=== PATIENT | female | born 1935 | race African-American/Black ===

== ENCOUNTER 2021-06-29 14:13 | Inpatient (IN) | payer MEDICARE ==
[2021-06-29] MEDS ORDERED: Ondansetron ODT 4 MG TAB SL PRN (19:15)
[2021-06-29] MEDS ORDERED: Sodium Chloride 0.9% 1,000 ML IV SCH (19:15)
[2021-06-29] MEDS ORDERED: Ondansetron PF 4 MG/2 ML Vial IVP PRN (19:15)
[2021-06-29] MEDS ORDERED: Polyethylene Glycol 3350 17 GM Packet PO SCH (19:30)
[2021-06-29] MEDS ORDERED: cefTRIAXone\\ROCEPHIN 1 GM in Sodium Chloride 0.9% 100 ML IVPB SCH (20:00)
[2021-06-29] MEDS: Lactated Ringer's 1,000 ML IV SCH (20:10)
[2021-06-29] MEDS: Glycerin Adult Supp. (24 ct jar) PR SCH (21:10)
[2021-06-30] MEDS: Labetalol HCl 100 MG/20 ML VIAL SLOW IVP PRN ×5 (02:02→21:02)
[2021-06-30] MEDS: Glycerin Adult Supp. (24 ct jar) PR SCH ×3 (03:39→20:56)
[2021-06-30] MEDS: Lactated Ringer's 1,000 ML IV SCH ×3 (03:41→21:03)
[2021-06-30 07:52] LABS: #Eosinphils 0.1 thou/uL (0.0-0.7); #Lymphocytes 0.6 thou/uL (1.20-3.40); #Monocytes 0.7 thou/uL (0.11-0.59); #Neutrophils 6.5 thou/uL (1.40-6.50); %Basophils 0.2 % (0.0-1.0); %Eosinophils 0.7 % (0.0-10.0); %Lymphocytes 7.9 % (21.0-51.0); %Monocytes 8.4 % (0.0-10.0); %Neutrophils 82.7 % (42.0-75.0); Hemoglobin 11.5 g/dL (12.0-16.0); Mean Corpuscular HGB CONC 33.4 g/dL (32.0-36.0); Mean Corpuscular Hemoglobin 31.6 pg (27.0-31.0); Mean Corpuscular Volume 94.6 fL (78.0-98.0); Mean Platelet Volume 6.9 fL (7.4-10.4); Platelet Count 230 thou/uL (130-400); RBC Distribution Width 14.3 % (11.5-14.5); Red Blood Cell (RBC) Count 3.63 mill/uL (4.20-5.40); White Blood Cell (WBC) Count 7.9 thou/uL (4.8-10.8)
[2021-06-30] MEDS: Polyethylene Glycol 3350 17 GM Packet PO SCH (07:55)
[2021-06-30 08:12] LABS: Anion Gap 12 mmol/L (10-20); BUN (Urea Nitrogen) 24 mg/dL (9.8-20.1); Calc. Creatinine Clearance 41 mL/min (70-130); Calcium 8.8 mg/dL (7.8-10.44); Carbon Dioxide 23 mmol/L (23-31); Chloride 107 mmol/L (98-107); Glucose 141 mg/dL (83-110); Potassium 3.9 mmol/L (3.5-5.1); Sodium 138 mmol/L (136-145)
[2021-06-30] MEDS ORDERED: GoLYTELY 4,000 ml Bottle PO SCH (10:45)
[2021-06-30 13:35] LABS: SARS-CoV-2 PCR by NAA Not Detected (NotDetected)
[2021-06-30] MEDS ORDERED: cefTRIAXone\\ROCEPHIN 1 GM in Sodium Chloride 0.9% 100 ML IVPB SCH (14:00)
[2021-06-30] MEDS ORDERED: Simvastatin 40 MG TAB PO SCH (21:00)
[2021-06-30] MEDS: Atorvastatin Calcium 20 MG TAB PO SCH (21:05)
[2021-06-30] MEDS: Senokot S 8.6-50 MG TAB PO SCH (22:32)
[2021-07-01] MEDS ORDERED: Melatonin 3 MG TAB PO PRN (02:56)
[2021-07-01] MEDS: Glycerin Adult Supp. (24 ct jar) PR SCH ×3 (05:19→22:28)
[2021-07-01 06:59] LABS: #Eosinphils 0.1 thou/uL (0.0-0.7); #Lymphocytes 0.8 thou/uL (1.20-3.40); #Monocytes 0.7 thou/uL (0.11-0.59); #Neutrophils 4.7 thou/uL (1.40-6.50); %Basophils 0.2 % (0.0-1.0); %Eosinophils 1.9 % (0.0-10.0); %Lymphocytes 13.1 % (21.0-51.0); %Monocytes 10.3 % (0.0-10.0); %Neutrophils 74.5 % (42.0-75.0); Hemoglobin 11.1 g/dL (12.0-16.0); Mean Corpuscular HGB CONC 33.6 g/dL (32.0-36.0); Mean Corpuscular Hemoglobin 31.4 pg (27.0-31.0); Mean Corpuscular Volume 93.7 fL (78.0-98.0); Mean Platelet Volume 6.6 fL (7.4-10.4); Platelet Count 238 thou/uL (130-400); RBC Distribution Width 14.1 % (11.5-14.5); Red Blood Cell (RBC) Count 3.53 mill/uL (4.20-5.40); White Blood Cell (WBC) Count 6.3 thou/uL (4.8-10.8)
[2021-07-01 07:24] LABS: Anion Gap 11 mmol/L (10-20); BUN (Urea Nitrogen) 8 mg/dL (9.8-20.1); Calc. Creatinine Clearance 68 mL/min (70-130); Calcium 8.8 mg/dL (7.8-10.44); Carbon Dioxide 27 mmol/L (23-31); Chloride 102 mmol/L (98-107); Glucose 95 mg/dL (83-110); Potassium 3.9 mmol/L (3.5-5.1); Sodium 136 mmol/L (136-145)
[2021-07-01] MEDS: Spironolactone 25 MG TAB PO SCH (08:11)
[2021-07-01] MEDS: Senokot S 8.6-50 MG TAB PO SCH ×2 (08:11→22:28)
[2021-07-01] MEDS: Polyethylene Glycol 3350 17 GM Packet PO SCH (08:11)
[2021-07-01] MEDS: Valsartan 80 MG TAB PO SCH (08:22)
[2021-07-01] MEDS ORDERED: FLU VACC QS2021-22(65YR UP)/PF 240 MCG/0.7 ML SYRINGE IM ONE (09:00)
[2021-07-01] MEDS ORDERED: Non-Formulary Item 1 EACH (Valsartan [Valsartan] 320 MG Tablet) PO SCH (09:00)
[2021-07-01] MEDS: Fosfomycin 3 GM/Packet PO SCH (14:00)
[2021-07-01] MEDS: Atorvastatin Calcium 20 MG TAB PO SCH (22:28)
[2021-07-02] MEDS: hydrALAZINE 10 MG TAB PO PRN ×2 (05:35→10:17)
[2021-07-02] MEDS: Glycerin Adult Supp. (24 ct jar) PR SCH ×2 (05:35→11:21)
[2021-07-02 08:42] LABS: Anion Gap 16 mmol/L (10-20); BUN (Urea Nitrogen) 7 mg/dL (9.8-20.1); Calc. Creatinine Clearance 67 mL/min (70-130); Calcium 8.5 mg/dL (7.8-10.44); Carbon Dioxide 21 mmol/L (23-31); Chloride 102 mmol/L (98-107); Glucose 85 mg/dL (83-110); Potassium 4.1 mmol/L (3.5-5.1); Sodium 135 mmol/L (136-145)
[2021-07-02] MEDS: Spironolactone 25 MG TAB PO SCH (08:48)
[2021-07-02] MEDS: Senokot S 8.6-50 MG TAB PO SCH (08:48)
[2021-07-02] MEDS: Valsartan 80 MG TAB PO SCH (08:48)
[2021-07-02] MEDS: Polyethylene Glycol 3350 17 GM Packet PO SCH (08:48)
[2021-07-02] MEDS ORDERED: Lactated Ringer's 500 ML IV SCH (12:00)
[2021-07-02] MEDS ORDERED: hydrALAZINE 20 MG/ML VIAL SLOW IVP PRN (12:03)
[2021-07-02] MEDS ORDERED: Lactated Ringer's 1,000 ML IV SCH (12:15)
[2021-07-02] MEDS ORDERED: Fleet Enema 133 ML BOT PR SCH (15:15)
[2021-07-02] MEDS ORDERED: Mineral Oil ENEMA PR SCH (15:30)
[2021-07-02] MEDS: Atorvastatin Calcium 20 MG TAB PO SCH (22:30)
[2021-07-03] MEDS: Senokot S 8.6-50 MG TAB PO SCH ×3 (00:05→20:55)
[2021-07-03] MEDS: Glycerin Adult Supp. (24 ct jar) PR SCH ×2 (04:17)
[2021-07-03 05:47] LABS: Anion Gap 9 mmol/L (10-20); BUN (Urea Nitrogen) 7 mg/dL (9.8-20.1); Calc. Creatinine Clearance 63 mL/min (70-130); Calcium 8.4 mg/dL (7.8-10.44); Carbon Dioxide 27 mmol/L (23-31); Chloride 102 mmol/L (98-107); Glucose 88 mg/dL (83-110); Potassium 3.7 mmol/L (3.5-5.1); Sodium 134 mmol/L (136-145)
[2021-07-03] MEDS: Valsartan 80 MG TAB PO SCH (08:48)
[2021-07-03] MEDS: Polyethylene Glycol 3350 17 GM Packet PO SCH (08:48)
[2021-07-03] MEDS: Spironolactone 25 MG TAB PO SCH (08:50)
[2021-07-03] MEDS ORDERED: Iopamidol-370 76% 500 ML 1 ML ONE (12:50)
[2021-07-03] MEDS ORDERED: levETIRAcetam in NS 1,500 MG in Premix Bag 1 BAG IVPB SCH (19:00)
[2021-07-03 19:01] LABS: #Basophils 0.1 thou/uL (0.0-0.2); #Eosinphils 0.1 thou/uL (0.0-0.7); #Lymphocytes 2.6 thou/uL (1.20-3.40); #Neutrophils 3.8 thou/uL (1.40-6.50); %Eosinophils 1.9 % (0.0-10.0); %Lymphocytes 34.2 % (21.0-51.0); %Monocytes 13.4 % (0.0-10.0); %Neutrophils 49.6 % (42.0-75.0); Hemoglobin 12.3 g/dL (12.0-16.0); Mean Corpuscular HGB CONC 32.2 g/dL (32.0-36.0); Mean Corpuscular Hemoglobin 31.7 pg (27.0-31.0); Mean Corpuscular Volume 98.6 fL (78.0-98.0); Mean Platelet Volume 6.3 fL (7.4-10.4); Platelet Count 324 thou/uL (130-400); RBC Distribution Width 14.3 % (11.5-14.5); Red Blood Cell (RBC) Count 3.89 mill/uL (4.20-5.40); White Blood Cell (WBC) Count 7.6 thou/uL (4.8-10.8)
[2021-07-03 19:23] LABS: ALT (SGPT) 43 U/L (8-55); AST (SGOT) 33 U/L (5-34); Albumin 3.3 g/dL (3.4-4.8); Alkaline Phosphatase 127 U/L (40-110); Anion Gap 23 mmol/L (10-20); BUN (Urea Nitrogen) 8 mg/dL (9.8-20.1); Bilirubin, Total 0.4 mg/dL (0.2-1.2); Calc. Creatinine Clearance 51 mL/min (70-130); Calcium 9.2 mg/dL (7.8-10.44); Carbon Dioxide 16 mmol/L (23-31); Chloride 100 mmol/L (98-107); Globulin 3.6 g/dL (2.4-3.5); Glucose 144 mg/dL (83-110); Magnesium 1.8 mg/dL (1.6-2.6); Phosphorus 3.6 mg/dL (2.3-4.7); Potassium 3.2 mmol/L (3.5-5.1); Protein, Total 6.9 g/dL (5.8-8.1); Sodium 136 mmol/L (136-145)
[2021-07-03] MEDS ORDERED: Potassium Chloride 40 MEQ in Premix Bag 1 BAG IVPB SCH (19:30)
[2021-07-03] MEDS: Atorvastatin Calcium 20 MG TAB PO SCH (20:55)
[2021-07-03] MEDS: Potassium Chloride 20 MEQ in Premix Bag 1 BAG IVPB SCH (21:02)
[2021-07-03] MEDS: levETIRAcetam in NS 500 MG in Premix Bag 1 BAG IVPB SCH (23:59)
[2021-07-04] MEDS: Potassium Chloride 20 MEQ in Premix Bag 1 BAG IVPB SCH (01:35)
[2021-07-04 06:50] LABS: Anion Gap 12 mmol/L (10-20); BUN (Urea Nitrogen) 5 mg/dL (9.8-20.1); Calc. Creatinine Clearance 62 mL/min (70-130); Calcium 8.6 mg/dL (7.8-10.44); Carbon Dioxide 19 mmol/L (23-31); Chloride 107 mmol/L (98-107); Glucose 88 mg/dL (83-110); Potassium 4.1 mmol/L (3.5-5.1); Sodium 134 mmol/L (136-145)
[2021-07-04] MEDS ORDERED: PROPOFOL 200 MG/20 ML VIAL ONE (08:14)
[2021-07-04] MEDS: Fosfomycin 3 GM/Packet PO SCH (12:03)
[2021-07-04] MEDS: Polyethylene Glycol 3350 17 GM Packet PO SCH ×3 (12:03→22:00)
[2021-07-04] MEDS: Valsartan 80 MG TAB PO SCH (12:03)
[2021-07-04] MEDS: levETIRAcetam in NS 500 MG in Premix Bag 1 BAG IVPB SCH ×2 (12:04→21:59)
[2021-07-04] MEDS: Senokot S 8.6-50 MG TAB PO SCH (12:06)
[2021-07-04] MEDS: Spironolactone 25 MG TAB PO SCH (12:06)
[2021-07-04] MEDS: Lactated Ringer's 1,000 ML IV SCH (12:08)
[2021-07-04] MEDS ORDERED: Lorazepam 2 MG/ML VIAL SLOW IVP PRN (17:29)
[2021-07-04] MEDS: Atorvastatin Calcium 20 MG TAB PO SCH (21:59)
[2021-07-05 04:47] LABS: #Basophils 0.1 thou/uL (0.0-0.2); #Eosinphils 0.2 thou/uL (0.0-0.7); #Lymphocytes 0.7 thou/uL (1.20-3.40); #Monocytes 0.4 thou/uL (0.11-0.59); #Neutrophils 3.8 thou/uL (1.40-6.50); %Basophils 1.1 % (0.0-1.0); %Neutrophils 74.9 % (42.0-75.0); Hemoglobin 10.3 g/dL (12.0-16.0); Mean Corpuscular HGB CONC 32.8 g/dL (32.0-36.0); Mean Corpuscular Hemoglobin 31.3 pg (27.0-31.0); Mean Corpuscular Volume 95.4 fL (78.0-98.0); Platelet Count 249 thou/uL (130-400); RBC Distribution Width 14.3 % (11.5-14.5); White Blood Cell (WBC) Count 5.1 thou/uL (4.8-10.8)
[2021-07-05 05:08] LABS: Anion Gap 12 mmol/L (10-20); BUN (Urea Nitrogen) 5 mg/dL (9.8-20.1); Calc. Creatinine Clearance 70 mL/min (70-130); Calcium 8.7 mg/dL (7.8-10.44); Carbon Dioxide 24 mmol/L (23-31); Chloride 105 mmol/L (98-107); Glucose 88 mg/dL (83-110); Potassium 3.6 mmol/L (3.5-5.1); Sodium 137 mmol/L (136-145)
[2021-07-05] MEDS: Spironolactone 100 MG TAB PO SCH (08:26)
[2021-07-05] MEDS: Valsartan 80 MG TAB PO SCH (08:26)
[2021-07-05] MEDS: Polyethylene Glycol 3350 17 GM Packet PO SCH ×2 (08:27→21:52)
[2021-07-05] MEDS: levETIRAcetam in NS 500 MG in Premix Bag 1 BAG IVPB SCH ×2 (08:28→21:53)
[2021-07-05 20:40] LABS: Chlam.trachomatis by PCR,Urine Not Detected (NotDetected)
[2021-07-05] MEDS: Atorvastatin Calcium 20 MG TAB PO SCH (21:53)
[2021-07-06 06:27] LABS: Hemoglobin 10.4 g/dL (12.0-16.0); Mean Corpuscular HGB CONC 33.1 g/dL (32.0-36.0); Mean Corpuscular Hemoglobin 31.4 pg (27.0-31.0); Mean Corpuscular Volume 94.9 fL (78.0-98.0); Mean Platelet Volume 6.5 fL (7.4-10.4); Platelet Count 268 thou/uL (130-400); RBC Distribution Width 14.2 % (11.5-14.5); Red Blood Cell (RBC) Count 3.32 mill/uL (4.20-5.40); White Blood Cell (WBC) Count 2.5 thou/uL (4.8-10.8)
[2021-07-06 06:45] LABS: Anion Gap 11 mmol/L (10-20); BUN (Urea Nitrogen) 7 mg/dL (9.8-20.1); Calc. Creatinine Clearance 64 mL/min (70-130); Calcium 8.6 mg/dL (7.8-10.44); Carbon Dioxide 25 mmol/L (23-31); Chloride 105 mmol/L (98-107); Glucose 88 mg/dL (83-110); Potassium 3.9 mmol/L (3.5-5.1); Sodium 137 mmol/L (136-145)
[2021-07-06 06:49] LABS: Eosinophils 3 % (0-10); Lymphocytes 37 % (21-51); MDiff Complete? YES; Monocytes 11 % (0-10); Neutrophil 49 % (42-75)
[2021-07-06] MEDS: Polyethylene Glycol 3350 17 GM Packet PO SCH ×2 (08:18→22:09)
[2021-07-06] MEDS: Spironolactone 100 MG TAB PO SCH (08:18)
[2021-07-06] MEDS: Valsartan 80 MG TAB PO SCH (08:18)
[2021-07-06] MEDS: levETIRAcetam in NS 500 MG in Premix Bag 1 BAG IVPB SCH (09:52)
[2021-07-06] MEDS ORDERED: Iopamidol 370 76% 100 ML VIAL ONE (11:01)
[2021-07-06] MEDS ORDERED: levETIRAcetam 500 MG in Sodium Chloride 0.9% 100 ML IVPB SCH (22:00)
[2021-07-06] MEDS: Atorvastatin Calcium 20 MG TAB PO SCH (22:09)
[2021-07-07 06:16] LABS: Hemoglobin 11.2 g/dL (12.0-16.0); Mean Corpuscular HGB CONC 32.7 g/dL (32.0-36.0); Mean Corpuscular Hemoglobin 30.8 pg (27.0-31.0); Mean Corpuscular Volume 94.4 fL (78.0-98.0); Mean Platelet Volume 6.1 fL (7.4-10.4); Platelet Count 276 thou/uL (130-400); RBC Distribution Width 14.2 % (11.5-14.5); Red Blood Cell (RBC) Count 3.64 mill/uL (4.20-5.40); White Blood Cell (WBC) Count 2.7 thou/uL (4.8-10.8)
[2021-07-07 06:33] LABS: Anion Gap 10 mmol/L (10-20); BUN (Urea Nitrogen) 5 mg/dL (9.8-20.1); Calc. Creatinine Clearance 58 mL/min (70-130); Calcium 8.9 mg/dL (7.8-10.44); Carbon Dioxide 25 mmol/L (23-31); Chloride 104 mmol/L (98-107); Glucose 95 mg/dL (83-110); Potassium 3.7 mmol/L (3.5-5.1); Sodium 135 mmol/L (136-145)
[2021-07-07 07:08] LABS: Eosinophils 4 % (0-10); Lymphocytes 47 % (21-51); MDiff Complete? YES; Monocytes 5 % (0-10); Neutrophil 44 % (42-75)
[2021-07-07] MEDS ORDERED: levETIRAcetam 500 MG in Sodium Chloride 0.9% 100 ML IVPB SCH (09:00)
[2021-07-07] MEDS: Polyethylene Glycol 3350 17 GM Packet PO SCH ×2 (10:30→23:15)
[2021-07-07] MEDS: Valsartan 80 MG TAB PO SCH (10:33)
[2021-07-07] MEDS: Spironolactone 100 MG TAB PO SCH (10:34)
[2021-07-07] MEDS: Fosfomycin 3 GM/Packet PO SCH (10:34)
[2021-07-07] MEDS: Atorvastatin Calcium 20 MG TAB PO SCH (23:14)
[2021-07-08 05:40] LABS: #Eosinphils 0.1 thou/uL (0.0-0.7); #Lymphocytes 0.8 thou/uL (1.20-3.40); #Monocytes 0.4 thou/uL (0.11-0.59); #Neutrophils 1.4 thou/uL (1.40-6.50); %Basophils 0.4 % (0.0-1.0); %Eosinophils 3.2 % (0.0-10.0); %Lymphocytes 30.5 % (21.0-51.0); %Monocytes 14.7 % (0.0-10.0); %Neutrophils 51.3 % (42.0-75.0); Hemoglobin 11.4 g/dL (12.0-16.0); Mean Corpuscular HGB CONC 33.1 g/dL (32.0-36.0); Mean Corpuscular Hemoglobin 31.6 pg (27.0-31.0); Mean Corpuscular Volume 95.5 fL (78.0-98.0); Mean Platelet Volume 6.2 fL (7.4-10.4); Platelet Count 285 thou/uL (130-400); RBC Distribution Width 14.3 % (11.5-14.5); Red Blood Cell (RBC) Count 3.62 mill/uL (4.20-5.40); White Blood Cell (WBC) Count 2.7 thou/uL (4.8-10.8)
[2021-07-08 06:07] LABS: Anion Gap 8 mmol/L (10-20); BUN (Urea Nitrogen) 8 mg/dL (9.8-20.1); Calc. Creatinine Clearance 54 mL/min (70-130); Calcium 8.8 mg/dL (7.8-10.44); Carbon Dioxide 27 mmol/L (23-31); Chloride 106 mmol/L (98-107); Glucose 88 mg/dL (83-110); Potassium 3.6 mmol/L (3.5-5.1); Sodium 137 mmol/L (136-145)
[2021-07-08 08:23] VITALS: BMI 20.8
[2021-07-08 08:26] VITALS: BP 140/63; TEMP 97.4
[2021-07-08] MEDS: Polyethylene Glycol 3350 17 GM Packet PO SCH (09:18)
[2021-07-08] MEDS: Spironolactone 100 MG TAB PO SCH (09:18)
[2021-07-08] MEDS: Valsartan 80 MG TAB PO SCH (09:18)
== END 2021-07-08 12:00 | disposition home health service (06) | DRG 682 ==
LOC: T4-B 18:28 → IMCU/EMU 07-03 19:23 → NEURO 07-04 17:12
PROVIDERS: ADMIT Student in an Organized Health Care Education/Training Program; ATTEND Student in an Organized Health Care Education/Training Program
PROC: 0DJD8ZZ Inspection of Lower Intestinal Tract, Via Natural or Artificial Opening Endoscopic (ICD-10-PCS; principal; 2021-07-04)
DX: N17.9 Acute kidney failure, unspecified (principal); G93.41 Metabolic encephalopathy; Z20.822 Contact with and (suspected) exposure to COVID-19; K56.7 Ileus, unspecified; K59.00 Constipation, unspecified; N13.6 Pyonephrosis; F03.90 Unspecified dementia, unspecified severity, without behavioral disturbance, psychotic disturbance, mood disturbance, and anxiety; K52.89 Other specified noninfective gastroenteritis and colitis; R56.9 Unspecified convulsions; G30.9 Alzheimer's disease, unspecified; F02.80 Dementia in other diseases classified elsewhere, unspecified severity, without behavioral disturbance, psychotic disturbance, mood disturbance, and anxiety; I10 Essential (primary) hypertension; E78.5 Hyperlipidemia, unspecified; D64.9 Anemia, unspecified; B96.4 Proteus (mirabilis) (morganii) as the cause of diseases classified elsewhere; Z98.51 Tubal ligation status; Z79.899 Other long term (current) drug therapy; Z95.0 Presence of cardiac pacemaker; Z85.820 Personal history of malignant melanoma of skin; Z90.710 Acquired absence of both cervix and uterus
CPT/HCPCS: 36415; 36416; 70450; 70470; 71045; 74018; 74177; 76770; 80048; 83735; 84100; 84146; 85025; 87491; 87591; 90471; 90662; 95816; 95819; 95957; G0008; J0360; J0696; J1953; J2704; J3480; J3490; J7050; J7120; Q9967; U0003; U0005

== ENCOUNTER 2022-04-15 11:36 | Inpatient (IN) | payer MEDICARE ==
[2022-04-15 12:43] LABS: #Lymphocytes 0.6 thou/uL (1.20-3.40); #Monocytes 0.6 thou/uL (0.11-0.59); %Basophils 0.1 % (0.0-1.0); %Eosinophils 0.2 % (0.0-10.0); %Lymphocytes 8.4 % (21.0-51.0); %Neutrophils 83.3 % (42.0-75.0); Hemoglobin 13.1 g/dL (12.0-16.0); Mean Corpuscular HGB CONC 32.7 g/dL (32.0-36.0); Mean Corpuscular Hemoglobin 30.8 pg (27.0-31.0); Mean Corpuscular Volume 94.4 fL (78.0-98.0); Mean Platelet Volume 6.7 fL (7.4-10.4); Platelet Count 202 thou/uL (130-400); RBC Distribution Width 14.8 % (11.5-14.5); Red Blood Cell (RBC) Count 4.26 mill/uL (4.20-5.40); White Blood Cell (WBC) Count 7.3 thou/uL (4.8-10.8)
[2022-04-15 13:08] LABS: Acetaminophen Less than 10.0 mcg/mL (10.0-30.0); Alcohol Less than 10 mg/dL (Less than 10); Salicylate Less than 8.0 mg/dL (15.0-30.0)
[2022-04-15 13:08] LABS: ALT (SGPT) 8 U/L (8-55); AST (SGOT) 17 U/L (5-34); Albumin 4.4 g/dL (3.4-4.8); Alkaline Phosphatase 62 U/L (40-110); Anion Gap 18 mmol/L (10-20); BUN (Urea Nitrogen) 13 mg/dL (9.8-20.1); CK (CPK) 172 U/L (29-168); Calc. Creatinine Clearance 0 mL/min (70-130); Calcium 9.4 mg/dL (7.8-10.44); Carbon Dioxide 22 mmol/L (23-31); Chloride 104 mmol/L (98-107); Estimated GFR 63; Globulin 2.9 g/dL (2.4-3.5); Glucose 100 mg/dL (83-110); Lipase 66 U/L (8-78); Potassium 3.9 mmol/L (3.5-5.1); Protein, Total 7.3 g/dL (5.8-8.1); Sodium 140 mmol/L (136-145)
[2022-04-15] MEDS ORDERED: Haloperidol Lactate 5 MG/ML VIAL ONE (13:49)
[2022-04-15 14:17] LABS: Bacteria/HPF 4+ HPF (None Seen); Bilirubin Negative (Negative); Blood, Urine 1+ (Negative); Clarity Turbid (Clear); Glucose, Urine (Dipstick) Normal (Negative); Ketone, Urine Negative (Negative); Leukocyte Negative Leu/uL (Negative); Nitrite Negative (Negative); Protein, Urine (Dipstick) 20 mg/dL (Neg-Trace); Specific Gravity, Urine 1.017 (1.002-1.036); Squamous Epithelial 0-3 HPF (0-3); Urobilinogen Normal mg/dL (Less than 2)
[2022-04-15 14:19] LABS: Amphetamine Not Detected (NotDetected); Barbiturates Screen Not Detected (NotDetected); Benzodiazepine Screen Not Detected (NotDetected); Cocaine Metabolite Screen Not Detected (NotDetected); Methadone Not Detected (NotDetected); Methamphetamine Not Detected (NotDetected); Opiate Screen Not Detected (NotDetected); Oxycodone Screen Not Detected (NotDetected); Phencyclidine (PCP) Not Detected (NotDetected); THC/Cannabinoid Screen Not Detected (NotDetected); Tricyclic Screen Not Detected (NotDetected)
[2022-04-15] MEDS ORDERED: cefTRIAXone\\ROCEPHIN 2 GM VIAL ONE (15:02)
[2022-04-15 15:26] LABS: SARS-CoV-2 NAA Rapid Test Not Detected (NotDetected)
[2022-04-15] MEDS ORDERED: Ondansetron ODT 4 MG TAB PO PRN (15:47)
[2022-04-15] MEDS ORDERED: Ondansetron PF 4 MG/2 ML Vial IVP PRN (15:47)
[2022-04-15] MEDS ORDERED: hydrALAZINE 20 MG/ML VIAL SLOW IVP PRN (15:47)
[2022-04-15 16:16] LABS: Lactic Acid 1.7 mmol/L (0.5-2.2)
[2022-04-15 16:56] LABS: HBCM Index 0.08 S/CO (0-0.79); HBSAg Index 0.25 S/CO (0-0.99); Hep A IgM AB Non-Reactive (NonReactive); Hep A IgM S/CO 0.24 S/CO (0-0.79); Hep B Surf Ag Non-Reactive S/CO (NonReactive); Hep C IgG Ab Non-Reactive (NonReactive); Hep C Index 0.05 S/CO (0-0.79); Hepatitis B Core IgM Abs Non-Reactive (NonReactive)
[2022-04-15] MEDS: cefTRIAXone\\ROCEPHIN 1 GM in Sodium Chloride 0.9% 100 ML IVPB SCH (17:01)
[2022-04-15] MEDS: Sodium Chloride 0.9% 1,000 ML IV SCH (17:36)
[2022-04-15] MEDS ORDERED: Polyethylene Glycol 3350 17 GM Packet PO PRN (19:38)
[2022-04-15] MEDS: Atorvastatin Calcium 20 MG TAB PO SCH (21:27)
[2022-04-15] MEDS ORDERED: Sterile Water 10 ML VIAL FS PRN (22:15)
[2022-04-15] MEDS ORDERED: OLANZapine 10 MG VIAL IM SCH (22:15)
[2022-04-16] MEDS: Sodium Chloride 0.9% 1,000 ML IV SCH ×3 (03:48→21:35)
[2022-04-16 04:50] LABS: Anion Gap 15 mmol/L (10-20); BUN (Urea Nitrogen) 10 mg/dL (9.8-20.1); Calc. Creatinine Clearance 46 mL/min (70-130); Calcium 8.6 mg/dL (7.8-10.44); Carbon Dioxide 20 mmol/L (23-31); Chloride 109 mmol/L (98-107); Estimated GFR 72; Glucose 74 mg/dL (83-110); Potassium 3.6 mmol/L (3.5-5.1); Sodium 140 mmol/L (136-145)
[2022-04-16 05:32] LABS: Hemoglobin 11.6 g/dL (12.0-16.0); Lymphocytes 29 % (21-51); MDiff Complete? YES; Mean Corpuscular HGB CONC 32.8 g/dL (32.0-36.0); Mean Corpuscular Hemoglobin 31.2 pg (27.0-31.0); Mean Corpuscular Volume 94.9 fL (78.0-98.0); Mean Platelet Volume 6.9 fL (7.4-10.4); Monocytes 10 % (0-10); Neutrophil 61 % (42-75); Platelet Count 172 thou/uL (130-400); Platelet Morphology Comment Appears Adequate; RBC Distribution Width 14.9 % (11.5-14.5); RBC Morphology Normal; Red Blood Cell (RBC) Count 3.72 mill/uL (4.20-5.40); White Blood Cell (WBC) Count 4.9 thou/uL (4.8-10.8)
[2022-04-16 14:06] VITALS: BMI 23.4
[2022-04-16] MEDS: Spironolactone 100 MG TAB PO SCH (14:29)
[2022-04-16] MEDS: Valsartan 80 MG TAB PO SCH (14:29)
[2022-04-16] MEDS: cefTRIAXone\\ROCEPHIN 1 GM in Sodium Chloride 0.9% 100 ML IVPB SCH (15:59)
[2022-04-16] MEDS: Atorvastatin Calcium 20 MG TAB PO SCH (21:35)
[2022-04-16] MEDS ORDERED: Melatonin 3 MG TAB PO PRN (21:55)
[2022-04-17 04:06] LABS: #Lymphocytes 0.6 thou/uL (1.20-3.40); #Monocytes 0.3 thou/uL (0.11-0.59); #Neutrophils 2.3 thou/uL (1.40-6.50); %Basophils 0.3 % (0.0-1.0); %Eosinophils 0.6 % (0.0-10.0); %Monocytes 10.4 % (0.0-10.0); %Neutrophils 69.7 % (42.0-75.0); Hemoglobin 11.1 g/dL (12.0-16.0); Mean Corpuscular HGB CONC 33.9 g/dL (32.0-36.0); Mean Corpuscular Hemoglobin 31.9 pg (27.0-31.0); Mean Corpuscular Volume 94.1 fL (78.0-98.0); Platelet Count 162 thou/uL (130-400); RBC Distribution Width 14.7 % (11.5-14.5); Red Blood Cell (RBC) Count 3.49 mill/uL (4.20-5.40); White Blood Cell (WBC) Count 3.3 thou/uL (4.8-10.8)
[2022-04-17 04:13] LABS: Hemoglobin A1c 5.3 % (4.0-6.0)
[2022-04-17 04:26] LABS: ALT (SGPT) 9 U/L (8-55); AST (SGOT) 18 U/L (5-34); Albumin 3.4 g/dL (3.4-4.8); Alkaline Phosphatase 56 U/L (40-110); Anion Gap 14 mmol/L (10-20); BUN (Urea Nitrogen) 7 mg/dL (9.8-20.1); Calc. Creatinine Clearance 46 mL/min (70-130); Calcium 8.2 mg/dL (7.8-10.44); Carbon Dioxide 19 mmol/L (23-31); Chloride 110 mmol/L (98-107); Estimated GFR 72; Globulin 2.4 g/dL (2.4-3.5); Glucose 81 mg/dL (83-110); Potassium 3.3 mmol/L (3.5-5.1); Protein, Total 5.8 g/dL (5.8-8.1); Sodium 140 mmol/L (136-145)
[2022-04-17 07:55] VITALS: TEMP 97.4
[2022-04-17] MEDS: Valsartan 80 MG TAB PO SCH (09:40)
[2022-04-17] MEDS: Spironolactone 100 MG TAB PO SCH (09:41)
[2022-04-17] MEDS: Sodium Chloride 0.9% 1,000 ML IV SCH (09:47)
[2022-04-17] MEDS ORDERED: Potassium Chloride 20 MEQ TAB PO SCH (10:30)
[2022-04-17] MEDS ORDERED: Cipro 250 MG TAB PO SCH ×2 (10:45→20:00)
[2022-04-17 12:36] VITALS: BP 189/85
== END 2022-04-17 12:55 | disposition home or self-care (01) | DRG 441 ==
LOC: ERS 11:36 → ERHOLD 14:26 → 2NO 16:28
PROVIDERS: ADMIT Internal Medicine; ATTEND Student in an Organized Health Care Education/Training Program
DX: K76.0 Fatty (change of) liver, not elsewhere classified (principal); G93.41 Metabolic encephalopathy; E72.20 Disorder of urea cycle metabolism, unspecified; N39.0 Urinary tract infection, site not specified; G93.49 Other encephalopathy; F03.90 Unspecified dementia, unspecified severity, without behavioral disturbance, psychotic disturbance, mood disturbance, and anxiety; I10 Essential (primary) hypertension; E78.5 Hyperlipidemia, unspecified; E86.0 Dehydration; E87.6 Hypokalemia; Z20.822 Contact with and (suspected) exposure to COVID-19; Z79.899 Other long term (current) drug therapy; Z95.0 Presence of cardiac pacemaker; Z90.49 Acquired absence of other specified parts of digestive tract; Z90.710 Acquired absence of both cervix and uterus; Z98.890 Other specified postprocedural states
CPT/HCPCS: 36415; 70450; 71045; 76700; 80048; 80053; 80074; 80306; 80307; 81003; 81015; 82140; 82550; 83036; 83605; 83690; 84443; 84484; 85025; 87040; 87077; 87086; 87186; 93005; 94760; J0696; J1630; J2358; J3490; J7050; U0002